=== PATIENT | female | born 1990 | race Caucasian/White ===

== ENCOUNTER → 2017-05-02 | Outpatient (CLI) | payer OTHER | LOC: BMCIMAGING 13:54 | PROVIDERS: ATTEND Internal Medicine | DX: J40 Bronchitis, not specified as acute or chronic (principal) ==

== ENCOUNTER 2018-12-23 05:09 | Emergency (ER) | payer OTHER ==
--- NOTE | 2018-12-23 06:25 | EDPHY ---
H & P Stated Complaint: right wrist injury Time Seen by Provider: 12/23/18 05:18 HPI/ROS: HPI The patient presents with injury to her right wrist which occurred last night when she was ice skating. She was on a rink and fell to her side landing on her right side as feet went forward. She had pain immediately in her wrist though is able to go to sleep. She awoke early at 3:00 a.m. With wrist pain which has been achy, constant, worse with movement of her wrist. She denies any numbness or tingling. REVIEW OF SYSTEMS 10 systems were reviewed and negative with the exception of the elements mentioned in the history of present illness. PMHx: Healthy Soc Hx: Here with her partner PHYSICAL General Appearance: Alert, no distress Eyes: Pupils equal and round no pallor or injection ENT, Mouth: Mucous membranes moist Respiratory: Breathing comfortably Neurological: A&O, sensation intact to light touch throughout hand, full range of motion of her fingers Skin: Warm and dry, no rashes Musculoskeletal: Right wrist with limited range of motion secondary to pain, there is an area of edema and tenderness on the posterior surface just proximal to the joint line Extremities: symmetrical, full range of motion Psychiatric: Patient is oriented X 3, there is no agitation Source: Patient Exam Limitations: No limitations - Personal History LMP (Females 10-55): Now Current Tetanus Diphtheria and Acellular Pertussis (TDAP): Yes - Medical/Surgical History Hx Asthma: No Hx Chronic Respiratory Disease: No Hx Diabetes: No Hx Cardiac Disease: No Hx Renal Disease: No Hx Cirrhosis: No Hx Alcoholism: No Hx HIV/AIDS: No Hx Splenectomy or Spleen Trauma: No - Social History Smoking Status: Never smoked Constitutional: Initial Vital Signs Temperature (C) 37 C 12/23/18 05:14 Heart Rate 70 12/23/18 05:14 Respiratory Rate 20 12/23/18 05:14 Blood Pressure 111/70 12/23/18 05:14 O2 Sat (%) 100 12/23/18 05:14 O2 Delivery Mode Room Air Allergies/Adverse Reactions: No Known Allergies Allergy (Unverified 12/23/18 05:14) Home Medications: Medication Instructions Recorded NK [No Known Home Meds] 12/23/18 Medical Decision Making - Diagnostics Imaging Results: X-ray right wrist and hand three views demonstrates likely scaphoid fracture with dorsal dislocation, interpreted by me, radiology interpretation is pending. Imaging: I viewed and interpreted images myself Procedures: SPLINT Procedure: Splint placement. A ortho glass volar splint was applied to the right wrist by the tech. After application of the splint I returned and re-examined the patient. The splint was adequately immobilizing the joint and distal to the splint the patient's circulation and sensation was intact. Differential Diagnosis: This is a 28 year old female who presents after a fall last night while ice skating. She appears to have a hand bone fracture, I suspect scaphoid on x- ray. She is neurovascularly intact. I will place her in a splint and have her follow up with the hand specialist. Differential diagnosis includes distal radius fracture, hand fracture, wrist sprain. Departure - Departure Disposition: Home, Routine, Self-Care Clinical Impression: Closed right hand fracture Qualifiers: Encounter type: initial encounter Qualified Code(s): S62.91XA - Unspecified fracture of right wrist and hand, initial encounter for closed fracture Condition: Good Instructions: Hand Fracture (ED), Splint Care (ED) Additional Instructions: I recommend you take ibuprofen 400 mg with acetaminophen 650 mg every 6 hr as needed for pain. You should use an ice pack for 20 min at a time several times a day. I recommend you call Dr. Saldivar's office on Tuesday to arrange for a follow-up appointment. Return to the ER if your worse in any way. Referrals: Mindy Saldivar MD [Medical Doctor] - As per Instructions Stand Alone Forms: Work Excuse
[2018-12-23 06:34] VITALS: BP 115/69
== END 2018-12-23 06:46 | disposition home or self-care (01) ==
PROC: 2W3CX1Z Immobilization of Right Lower Arm using Splint (ICD-10-PCS; principal; 2018-12-23)
DX: S62.91XA Unspecified fracture of right hand, initial encounter for closed fracture (principal); V00.211A Fall from ice-skates, initial encounter; Y93.21 Activity, ice skating; Y92.89 Other specified places as the place of occurrence of the external cause; Y99.8 Other external cause status

== ENCOUNTER → 2019-03-23 | Outpatient (CLI) | payer OTHER | LOC: FIMAGING 17:14 | PROVIDERS: ATTEND Obstetrics & Gynecology | DX: O26.31 Retained intrauterine contraceptive device in pregnancy, first trimester (principal); Z3A.09 9 weeks gestation of pregnancy ==